=== PATIENT | female | born 1975 | race Two or more races ===

== ENCOUNTER 2021-03-17 23:59 | Emergency (ER) | payer BC, MEDICAID, OTHER, SELFPAY ==
--- NOTE | ~2021-03-17 | CT_ITS ---
EXAMINATION: CT ABDOMEN AND PELVIS WITH CONTRAST CLINICAL INFORMATION: Left lower quadrant pain COMPARISON: None TECHNIQUE: Multidetector volumetric images were obtained from the superior aspect of the liver through the pubic symphysis following administration 100 mL of Omnipaque 350 intravenous contrast. Sagittal and coronal reformatted images were obtained on the technologist's workstation. Oral contrast: No This CT examination was performed using dose optimization techniques as appropriate, variously including the following: *Automated exposure control *Adjustment of mA and/or kV according to patient size (this includes techniques or standardized protocols for targeted exams where dose is matched to indication/reason for exam; i.e. extremities or head) *Use of iterative reconstruction technique DLP: 3138 mGy-cm FINDINGS: LUNG BASES: Right basilar calcified granuloma. Noncalcified 0.4 cm left lower lobe solid nodule. This is seen on series 3 image 8. There is a 0.3 cm left lower lobe nodule on image 14. Additional 0.4 cm left lower lobe nodule on image 19. LIVER, GALLBLADDER, AND BILIARY TREE: The liver is enlarged measuring 20 cm CC. The liver is normal in shape and attenuation. No focal hepatic lesion or biliary ductal dilatation is present. The gallbladder is unremarkable with no evidence of radiopaque gallstones, gallbladder wall thickening, or obvious pericholecystic inflammatory changes. PANCREAS: Unremarkable. SPLEEN: Unremarkable. ADRENAL GLANDS: The right adrenal gland is unremarkable. Mild thickening of the left adrenal gland. KIDNEYS AND URETERS: The kidneys are normal in size, shape, and attenuation. No hydronephrosis, hydroureter, or calculi seen. No perinephric stranding. BLADDER: Unremarkable. GASTROINTESTINAL TRACT: The stomach is unremarkable. Normal caliber small bowel. There is no obstruction. Normal appendix. No colonic wall thickening or inflammatory change. No free air or free fluid. ABDOMINAL WALL: No significant hernia is appreciated. LYMPH NODES: Normal. VASCULAR: Unremarkable. PELVIC VISCERA: The uterus and adnexa are unremarkable. OSSEOUS STRUCTURES: No acute or suspicious osseous abnormality. Mild degenerative changes in the spine. CT/CT abdomen pelvis w con IMPRESSION: No acute findings of the abdomen or pelvis. No inflammatory changes. Multiple small left lower lobe pulmonary nodules. According to the UPDATED 2017 Fleischner Society recommendations, the advised follow-up imaging for solid nodules < 6 mm is: LOW RISK PATIENT: No routine follow-up. HIGH RISK PATIENT: Optional CT at 12 months.
--- NOTE | ~2021-03-17 | XR_ITS ---
EXAMINATION: XR CHEST CLINICAL INFORMATION: Chest pain COMPARISON: None TECHNIQUE: Frontal view of the chest was obtained. FINDINGS: Cardiac leads overlie the chest. The lungs are well expanded. There is no focal consolidation, edema, or effusion. No pneumothorax. The cardiomediastinal silhouette is within normal limits. No acute osseous abnormality. XR/XR chest 1V IMPRESSION: No acute pulmonary finding.
--- NOTE | 2021-03-18 | ECG_ITS ---
Test Reason : CP Blood Pressure : / mmHG Vent. Rate : 076 BPM Atrial Rate : 076 BPM P-R Int : 176 ms QRS Dur : 098 ms QT Int : 408 ms P-R-T Axes : 024 026 041 degrees QTc Int : 459 ms Normal sinus rhythm Cannot rule out Anteroseptal infarct , age undetermined Abnormal ECG No previous ECGs available Referred By: Generic ED Physician Electronically Signed By:ALEXA MONK MD
[2021-03-18 00:12] VITALS: BP 153/75; PULSE 78; RESP 20; TEMP 37; O2SAT 98; BMI 60.5
--- NOTE | 2021-03-18 00:50 | ED_ITS ---
HPI - Chest Pain General Chief Complaint: Chest Pain Stated Complaint: chest pain Time Seen by Provider: 03/18/21 00:50 Source: patient and under water assistant Mode of arrival: EMS History of Present Illness HPI narrative: 45-year-old female brought in via EMS with 2 isolated episodes of chest pressure without radiation (last episode 2239) and lasting approximately 2-5 minutes induration while resting in bed. These episodes were not associated with shortness of breath, dizziness, diaphoresis, or nausea but she endorses that the discomfort increased with deep inspiration. Otherwise, patient denies any fevers or chills but states she has experienced lower abdominal discomfort since her arrival in the emergency department. Otherwise, she denies any recent travel or calf pain/swelling. Related Data Allergies Allergy/AdvReac Type Severity Reaction Status Date / Time No Known Allergies Allergy Verified 03/18/21 00:55 Review of Systems Review of Systems: Pertinent positives and negatives as stated in the HPI 10 point review of systems is otherwise negative. PMFSH Past Medical History Source: nursing notes reviewed Medical History Asthma Diabetes Hypertension Sleep apnea Social History Social History Smoked in Last 30 Days: No Advance Directives: No Advance Directives Information Provided: No Physical Exam Vital Signs: Vital Signs: Last Vital Signs Temp 98.6 F 03/18/21 00:12 Pulse 69 03/18/21 04:03 Resp 16 03/18/21 04:03 BP 154/80 H 03/18/21 04:03 Pulse Ox 96 03/18/21 04:03 Body Mass Index 60.5 VITAL SIGNS: Reviewed. GENERAL: Morbidly obese, well developed, well nourished, in no acute distress. HEAD: Normocephalic/atraumatic EYES: PERRLA, EOMI OROPHARYNX: no oral lesions noted, posterior pharynx clear NECK: Supple, no adenopathy LUNGS: Normal breath sounds. No adventitious sounds or accessory muscle use. SpO2<96> CARDIOVASCULAR: Regular rate and rhythm without noted murmurs ABDOMEN: Obese, Soft, tenderness at left lower quadrant without rebound, non- distended with bowel sounds. EXTREMITIES: No cyanosis, clubbing or edema. NEUROLOGIC: Alert and oriented x 4. Strength and sensation to light touch were grossly intact x 4. Course Course Course Narrative: 45-year-old female with history and clinical presentation suggestive of pleurisy costochondritis, but will evaluate for cardiopulmonary e tiologies and abdominal evaluation with low suspicion for diverticulitis. On review of all investigations no acute findings to explain patient's presentation and despite trace elevation of high sensitivity troponin on subsequent testing the value is equivalent without changes on EKG and patient currently asymptomatic. Although D-dimer is noted to be 228 doubt this has clinical significance. All results and findings discussed with patient bedside and she was discharged home in stable condition with return precautions. MDM - Chest Pain Lab Data Result diagrams: 03/18/21 01:17 03/18/21 01:17 Labs: Lab Results 03/18/21 03/18/21 03/18/21 Range/Units 01:17 01:17 01:17 WBC 9.3 (4.8-10.8) X10*3/uL RBC 3.74 L (4.20-5.50) X10*6/uL Hgb 10.5 L (12.0-16.0) g/dl Hct 33.2 L (37-47) % MCV 88.8 (80-98) fL MCH 28.1 (27.0-33.0) pg MCHC 31.6 (31.0-35.0) g/dl RDW 15.4 (11.0-16.0) % Plt Count 212 (160-400) X10*3/uL MPV Not Reportable Immature Gran % (Auto) 0.2 (0.0-0.4) % Neut % (Auto) 60.0 (45-73) % Lymph % (Auto) 27.7 (20-40) % [place] % (Auto) 9.1 (2-11) % Eos % (Auto) 2.6 (0-4) % Baso % (Auto) 0.4 (0-2) % Lymph # (Auto) 2.6 (1.2-4.9) X10*3/uL [place] # (Auto) 0.9 (0.1-1.2) X10*3/uL Eos # (Auto) 0.2 (0.0-0.4) X10*3/uL Baso # (Auto) 0.0 (0.0-0.2) X10*3/uL Abs Immat Gran (auto) 0.02 (0.00-0.03) X10*3/uL Absolute Neuts (auto) 5.6 (2.0-8.3) X10*3/uL Absolute Nucleated RBC 0.000 (0.0-0.012) X10*3/uL Nucleated RBC % (auto) 0.0 (0.0-0.2) /100WBC Smear Tech's Comments VERIFIED D-Dimer 224 NG/ML Hold Blue Top SEE NOTE Sodium 138 (135-145) mmol/L Potassium 4.5 (3.3-5.1) mmol/L Chloride 104 (96-108) mmol/L Carbon Dioxide 24 (22-29) mmol/L Anion Gap 15 (12-20) BUN 12 (9-16) mg/dL Creatinine 0.77 (0.5-1.4) mg/dL Estim Creat Clear Calc 145.9 Estimated GFR > 60 Random Glucose 137 H (60-115) mg/dL Calcium 9.3 (8.4-10.2) mg/dL Troponin I High Sens (<3.5-17.0) ng/L 03/18/21 03/18/21 Range/Units 01:17 04:19 WBC (4.8-10.8) X10*3/uL RBC (4.20-5.50) X10*6/uL Hgb (12.0-16.0) g/dl Hct (37-47) % MCV (80-98) fL MCH (27.0-33.0) pg MCHC (31.0-35.0) g/dl RDW (11.0-16.0) % Plt Count (160-400) X10*3/uL MPV Immature Gran % (Auto) (0.0-0.4) % Neut % (Auto) (45-73) % Lymph % (Auto) (20-40) % [place] % (Auto) (2-11) % Eos % (Auto) (0-4) % Baso % (Auto) (0-2) % Lymph # (Auto) (1.2-4.9) X10*3/uL [place] # (Auto) (0.1-1.2) X10*3/uL Eos # (Auto) (0.0-0.4) X10*3/uL Baso # (Auto) (0.0-0.2) X10*3/uL Abs Immat Gran (auto) (0.00-0.03) X10*3/uL Absolute Neuts (auto) (2.0-8.3) X10*3/uL Absolute Nucleated RBC (0.0-0.012) X10*3/uL Nucleated RBC % (auto) (0.0-0.2) /100WBC Smear Tech's Comments D-Dimer NG/ML Hold Blue Top Sodium (135-145) mmol/L Potassium (3.3-5.1) mmol/L Chloride (96-108) mmol/L Carbon Dioxide (22-29) mmol/L Anion Gap (12-20) BUN (9-16) mg/dL Creatinine (0.5-1.4) mg/dL Estim Creat Clear Calc Estimated GFR Random Glucose (60-115) mg/dL Calcium (8.4-10.2) mg/dL Troponin I High Sens 6.6 6.3 (<3.5-17.0) ng/L Discharge Plan Discharge Clinical Impression: Atypical chest pain Patient Disposition: Home, Self-Care Instructions: Chest Pain (ED) Additional Instructions: 1. Reanude todos los medicamentos caseros seg?n lo prescrito. 2. Stacie un seguimiento con rogers proveedor de atenci?n primaria en los pr?ximos 2-3 d?as para ousmane reevaluaci?n. No dude en volver al servicio de urgencias por cualquier cambio gil en jamal s?ntomas. Referrals: Lester Byrne MD [Primary Care Provider] - 2 days (Re-evaluation after fall on stairs with contusion to left lower leg.) Interventions: ED Discharge Assessment Last Done: 03/18/21 06:40 Discharge Date/Time: 03/18/21 06:50 Print Language: Indonesian
[2021-03-18 01:25] LABS: Eosinophils Absolute Auto 0.2 X10*3/uL (0.0-0.4); Hemoglobin 10.5 g/dl (12.0-16.0); MANUAL DIFF FLAG SCAN; Mean Corpuscular Hemoglobin 28.1 pg (27.0-33.0); Red Blood Count 3.74 X10*6/uL (4.20-5.50); Red Cell Distribution Width 15.4 % (11.0-16.0); SCAN SMEAR FLAG 1
[2021-03-18 01:27] LABS: Basophils Percent Auto 0.4 % (0-2); Eosinophils Percent Auto 2.6 % (0-4); Hematocrit 33.2 % (37-47); Imm Gran Abs Auto 0.02 X10*3/uL (0.00-0.03); Imm Gran Pct Auto 0.2 % (0.0-0.4); Lymphocytes Absolute Auto 2.6 X10*3/uL (1.2-4.9); Lymphocytes Percent Auto 27.7 % (20-40); Mean Corpuscular HGB Conc 31.6 g/dl (31.0-35.0); Mean Corpuscular Volume 88.8 fL (80-98); Monocytes Absolute Auto 0.9 X10*3/uL (0.1-1.2); Monocytes Percent Auto 9.1 % (2-11); Neutrophils Absolute Auto 5.6 X10*3/uL (2.0-8.3); PLT ABN DIST 1; Platelet Count 212 X10*3/uL (160-400); White Blood Count 9.3 X10*3/uL (4.8-10.8)
[2021-03-18 01:54] LABS: Anion Gap 15 (12-20); Blood Urea Nitrogen 12 mg/dL (9-16); Calcium 9.3 mg/dL (8.4-10.2); Carbon Dioxide 24 mmol/L (22-29); Chloride 104 mmol/L (96-108); Creatinine Clr Calc Pharmacy 145.9; Estimated Glomerular Filt Rate > 60; Glucose Random 137 mg/dL (60-115); Potassium 4.5 mmol/L (3.3-5.1); Sodium 138 mmol/L (135-145)
[2021-03-18 01:57] LABS: Troponin-I High Sensitivity 6.6 ng/L (<3.5-17.0)
[2021-03-18 02:39] LABS: SLIDE REVIEW VERIFIED
[2021-03-18 03:32] LABS: D Dimer 224 NG/ML
[2021-03-18 04:03] VITALS: BP 154/80; PULSE 69; RESP 16; O2SAT 96
[2021-03-18 05:03] LABS: Troponin-I High Sensitivity 6.3 ng/L (<3.5-17.0)
[2021-03-18] MEDS: iohexoL 350 MG/ML 100 ML INFUS..BTL IV (05:38)
== END 2021-03-18 06:50 | disposition home or self-care (01) ==
PROVIDERS: Emergency Provider Student in an Organized Health Care Education/Training Program; PCP Internal Medicine Infectious Disease
DX: R07.89 Other chest pain (principal); E11.9 Type 2 diabetes mellitus without complications; I10 Essential (primary) hypertension; J45.909 Unspecified asthma, uncomplicated
CPT/HCPCS: 36415; 71045; 74177; 80048; 84484; 85025; 85379; 93005; 99285; Q9967